=== PATIENT | male | born 1995 | race Caucasian/White ===

== ENCOUNTER 2019-04-08 17:23 | Observation (INO) ==
[2019-04-08] MEDS ORDERED: hydrOXYzine pamoate 25 MG CAPSULE PO PRN (18:53)
[2019-04-08] MEDS ORDERED: Haloperidol Lactate 5 MG/ML VIAL IM PRN (18:53)
[2019-04-08] MEDS ORDERED: Mag Hydrox/Al Hydrox/Simeth 30 ML UDC PO PRN (18:53)
[2019-04-08] MEDS ORDERED: MOM Conc 10 ML UD.LIQ PO PRN (18:53)
[2019-04-08] MEDS ORDERED: Acetaminophen 325 MG TABLET PO PRN (18:53)
[2019-04-08] MEDS ORDERED: *HR* LORazepam 1 MG TABLET PO PRN (18:53)
[2019-04-08] MEDS ORDERED: *HR* LORazepam 2 MG/ML VIAL IM PRN (18:53)
[2019-04-08] MEDS ORDERED: traZODone 50 MG TABLET PO PRN (18:53)
[2019-04-09 10:53] VITALS: BP 129/79
== END 2019-04-09 11:10 | disposition home or self-care (01) ==
LOC: EMEROOARM 17:23 → 1ANU 17:23
PROVIDERS: ADMIT Psychiatry & Neurology Psychiatry; ATTEND Psychiatry & Neurology Psychiatry